=== PATIENT | male | born 2000 | race Caucasian/White ===

== ENCOUNTER 2024-07-22 14:44 | Emergency (ER) | payer OTHER ==
[~2024-07-22] VITALS: Ht 182.9 cm; Wt 84.0 kg
[2024-07-22 14:46] VITALS: O2SAT 98
[2024-07-22] MEDS: TETANUS, DIPHTHERIA, PERTUSSIS VAC/PF 0.5ML (>10YR OLD) IM ONE (17:01)
[2024-07-22] MEDS: MORPHINE SULFATE 4 MG/ML INJ (FOR IV/IM USE) IV ONE (17:01)
[2024-07-22] MEDS: KETOROLAC 30MG/ML VIAL IV ONE (17:01)
[2024-07-22] MEDS: LIDOCAINE HCL 1% 20ML VIAL INFIL ONE (18:00)
[2024-07-22] MEDS ORDERED: HYDR-4001 MT (18:56)
[2024-07-22] MEDS ORDERED: IBUP-2029 MT (18:57)
[2024-07-22 19:57] VITALS: BP 158/72; PULSE 70; RESP 12; TEMP 36.8; O2SAT 98
[2024-07-22] MEDS: BACITRACIN/POLYMYXIN B SULFATE OINT 15GM TOP NR (20:04)
== END 2024-07-22 20:01 | disposition home or self-care (01) ==
LOC: ER 14:44
DX: S52.612A Displaced fracture of left ulna styloid process, initial encounter for closed fracture (principal); S52.572A Other intraarticular fracture of lower end of left radius, initial encounter for closed fracture; Z79.899 Other long term (current) drug therapy; X58.XXXA Exposure to other specified factors, initial encounter; Y93.89 Activity, other specified; Y92.89 Other specified places as the place of occurrence of the external cause; Y99.8 Other external cause status
CPT/HCPCS: 73100; 73110; 90715; 25605; 90471; 96374; 96375; 99152; 99285; J1885; J3490; Z7610 ×4; A4565; A4606